=== PATIENT | female | born 1950 | race Caucasian/White ===

== ENCOUNTER 2020-02-12 19:52 | Inpatient (IN) | payer MEDICARE, MEDICAID, SELFPAY ==
--- NOTE | ~2020-02-12 | XR_ITS ---
EXAMINATION: XR chest 1V portable EXAM DATE: 02/12/2020 20:42 INDICATION: Shortness of breath, low oxygen saturation. COVID 19. TECHNIQUE: Portable AP frontal chest x-ray was obtained. Comparison is made to prior examination from 09/06/2019. FINDINGS: Again there is cardiomegaly and pulmonary vascular congestion. There is moderate amount of ill-defined bilateral airspace disease, could be edema, pneumonia and/or acute lung injury. Probable small pleural effusions. No pneumothorax. There are bony degenerative changes. There are cholecystect ewndy clips. IMPRESSION: 1. Cardiomegaly, pulmonary vascular congestion. 2. Moderate amount of bilateral acute airspace disease. Reviewed, dictated and finalized at location A.
[2020-02-12 19:55] VITALS: BP 162/107; PULSE 99; RESP 25; TEMP 36.9; O2SAT 94
--- NOTE | 2020-02-12 20:12 | ECG_ITS ---
Measurements Intervals [place] Rate: 92 P: 108 VA: 194 QRS: 31 QRSD: 106 T: 51 QT: 335 QTc: 415 Interpretive Statements SINUS RHYTHM BORDERLINE ST-T WAVE ABNORMALITY- INF/LAT LEADS BASELINE ARTIFACT- I, II, III, AVR, AVL, AVF, V1, V5-V6 BORDERLINE ECG Electronically Signed On 02-13-2020 7:06:21 CDT by Jeff Arroyo D.O.
--- NOTE | 2020-02-12 20:19 | ED.SOB ---
HPI - SOB/Dyspnea General Chief Complaint: Shortness of Breath/Dyspnea Stated Complaint: low pulse ox Time Seen by Provider: 02/12/20 20:01 History of Present Illness HPI Narrative: The patient presents via EMS from the senior living for increasing shortness of breath. She is known to be COVID positive, and has been on nasal cannula oxygen at the senior living. Her saturations were dropping and her oxygen requirement was increasing, so she was sent here on 15 L nonrebreather. She does not complain of shortness of breath or of any pain or cough.. She has only for something to drink. MD elicited complaint: shortness of breath Related Data Home Medications Medication Instructions Recorded Confirmed Breo Ellipta 1 inh INHALATION DAILY 09/02/19 09/02/19 Eliquis 5 mg PO BID 09/02/19 09/02/19 Levemir U-100 Insulin 60 unit SUBCUT HS 09/02/19 09/02/19 Levemir U-100 Insulin 140 unit SUBCUT DAILY 09/02/19 09/02/19 Novolin R Regular U-100 Insuln 6 units SUBCUT DIRECTED 09/02/19 09/02/19 Victoza 2-Abilio 18 mg SUBCUT DAILY 09/02/19 09/02/19 acetaminophen 650 mg PO Q4H PRN 09/02/19 09/02/19 amlodipine 5 mg PO DAILY 09/02/19 09/02/19 cholecalciferol (vitamin D3) 50,000 unit PO WEEKLY 09/02/19 09/02/19 cyclobenzaprine 5 mg PO TID PRN 09/02/19 09/02/19 dextran 70-hypromellose (PF) 1 drp OPHTHALMIC (EYE) Q4H PRN 09/02/19 09/02/19 dextromethorphan-guaifenesin 10 ml PO Q4H PRN 09/02/19 09/02/19 [Tussin DM Cough and Chest] furosemide [Lasix] 40 mg PO DAILY 09/02/19 09/02/19 gabapentin 300 mg PO TID 09/02/19 09/02/19 isosorbide mononitrate 60 mg PO DAILY 09/02/19 09/02/19 losartan 100 mg PO DAILY 09/02/19 09/02/19 magnesium hydroxide [Milk of 30 ml PO DAILY PRN 09/02/19 09/02/19 Magnesia] meclizine 25 mg PO TID PRN 09/02/19 09/02/19 metoclopramide HCl 10 mg PO AC 09/02/19 09/02/19 metoprolol tartrate 25 mg PO BID 09/02/19 09/02/19 oxybutynin chloride 15 mg PO DAILY 09/02/19 09/02/19 simvastatin 10 mg PO HS 09/02/19 09/02/19 Allergies Allergy/AdvReac Type Severity Reaction Status Date / Time Sulfa (Sulfonamide Allergy Intermediate Rash Verified 09/02/19 09:39 Antibiotics) sulfanilamide Allergy Unknown Unknown Verified 09/02/19 00:37 Review of Systems Review of Systems: ROS unobtainable: Yes unobtainable due to medical condition PMFSH Past Medical History Medical History Acute respiratory failure with hypoxia and hypercarbia Aphasia Atrial fibrillation Cataract Chronic kidney disease, stage 3 Chronic respiratory failure COPD (chronic obstructive pulmonary disease) CVA (cerebral vascular accident) Diabetes mellitus Diastolic heart failure Elevated troponin Gastro-esophageal reflux disease with esophagitis Heart failure Hyperkalemia Hyperlipidemia Hypertension Morbid obesity Sleep apnea Type II diabetes mellitus Surgical History Surgical History H/O: hysterectomy History of tonsillectomy Hx of cholecystectomy Previous section Family History Family History Other Unknown family medical history Social History Social History Smoking status: Never smoker Second hand tobacco smoke exposure: No Alcohol intake: never Substance use: never Gender identity (if verbalized by the patient): Female Spiritual care concerns: No Agree to blood products: Yes Exam Narrative: Exam Narrative: GENERAL: Well-appearing, well-nourished, obese, breathing with her abdominal muscles. HEAD: Normocephalic, atraumatic. EYES: PERRLA and EOMI. ENT: Nares clear, no rhinorrhea or epistaxis. Mucous membranes dry NECK: Supple. CHEST: Clear to auscultation. No respiratory distress. HEART: Regular rate and rhythm. No murmur heard. Normal peripheral pulses. ABDOMEN: Soft, nontender, nondistended, normal active bowel edson
[2020-02-12 20:35] LABS: Basophils Percent Auto 0.3 % (0.2-1.2); Eosinophils Percent Auto 0.5 % (0-4.4); Hemoglobin 12.6 g/dL (12.0-15.0); Immature Granulocyte Absolute 0.03 K/mm3 (0.00-0.031); Immature Granulocyte Percent A 0.3 % (0-0.5); Lymphocytes Absolute Auto 0.64 K/mm3 (0.9-3.2); Lymphocytes Percent Auto 7.5 % (18.3-44.2); Mean Corpuscular HGB Conc 28.6 g/dl (32-36); Mean Corpuscular Hemoglobin 27.7 pg (26-34); Mean Corpuscular Volume 96.7 fl (80-100); Mean Platelet Volume 10.9 fl (7.4-10.4); Monocytes Absolute Auto 1.3 K/mm3 (0.1-0.6); Monocytes Percent Auto 14.8 % (2.6-8.5); Neutrophils Absolute Auto 6.6 K/mm3 (1.3-6.7); Neutrophils Percent Auto 76.6 % (45.5-73.1); Platelet Count Result 210 k/mm3 (150-375); Red Blood Count 4.55 M/mm3 (4.2-5.4); Red Cell Distribution Width 14.6 % (11.5-14.5); White Blood Count 8.6 K/mm3 (4.5-10.0)
[2020-02-12 21:00] VITALS: O2SAT 100
[2020-02-12] MEDS: SODIUM CHLORIDE 0.9% IV 1,000 ML 999 ML IV CONT (21:09)
[2020-02-12] MEDS: FUROSEMIDE INJ 40 MG/4 ML VIAL IV PUSH (21:10)
[2020-02-12 21:16] VITALS: BP 109/69; PULSE 90; RESP 29; TEMP 37.1; O2SAT 100
[2020-02-12 21:23] LABS: Add Urine Microscopic? YES; Appearance Urine Turbid (Clear); Bacteria Urine 4+ /hpf; Bilirubin Urine Negative (Negative); Blood Urine 2+ (Negative); Glucose Urine UA Negative (Negative); Hyaline Casts Urine 15-19 /lpf; Ketones Urine Trace mg/dL (Negative); Leukocyte Esterase Ur 2+ LEU/UL (Negative); Mucus Urine Rare /lpf; Nitrate Urine Negative (Negative); Protein Urine 2+ mg/dL (Negative); RBC Urine 51-75 /hpf (0-2); Specific Grav Ur 1.015 (1.001-1.035); Squamous Epithelial Cell Urine Many /hpf (Few); WBC Clumps Urine Present /HPF; WBC Urine >75 /hpf
[2020-02-12 21:30] LABS: Color Urine Dark Yellow (Yellow)
[2020-02-12] MEDS: KETOROLAC 15 MG/ML VIAL (*BKC) IV PUSH (21:45)
[2020-02-12 22:05] LABS: INR 1.4
[2020-02-12 22:06] LABS: Partial Thromboplastin Time 40.9 SECONDS (22.3-36.8)
[2020-02-12 22:10] VITALS: BP 109/76; PULSE 78; RESP 23; O2SAT 100
[2020-02-12 22:16] LABS: D Dimer 0.39 ug/mL (<0.48)
[2020-02-12 22:23] LABS: Alanine Aminotransferase 21 U/L (4-35); Albumin Level 3.4 g/dL (3.5-5.1); Alkaline Phosphatase 83 U/L (38-126); Aspartate Amino Transferase 29 U/L (14-36); Bilirubin,Total 0.3 mg/dL (0.2-1.3); Blood Urea Nitrogen 51 mg/dL (7-17); CRP 2.5 mg/dL (<1.0); Calcium 10.2 mg/dL (8.4-10.2); Carbon Dioxide 36 mmol/L (22-30); Chloride 100 mmol/L (98-107); Estimated CRCL calculation 36 ml/min; Estimated Glomerular Filt Rate 26; Glucose 146 mg/dL (65-105); Lactate Dehydrogenase 398 U/L (313-618); Potassium 4.5 mmol/L (3.4-5.0); Sodium 141 mmol/L (137-145)
[2020-02-12 22:31] LABS: NT Pro B Type Natriuretic Pept 529 PG/ML (5-100)
[2020-02-12] MEDS: NITROGLYCERIN OINTMENT 1 INCH DOSE TRANSDERM (22:51)
[2020-02-12 22:57] VITALS: BP 117/66; PULSE 78; RESP 22; O2SAT 100
[2020-02-13] VITALS (18 sets, daily range): BP systolic 106–142; BP diastolic 46–98; PULSE 60–100; RESP 16–22; TEMP 36.2–37; O2SAT 90–100; BMI 42.8
[2020-02-13 01:09] LABS: Troponin I 0.167 ng/mL (0.000-0.034)
--- NOTE | 2020-02-13 01:15 | PM.IMHP ---
H&P: HPI History of Present Illness Chief complaint: covid Narrative: This is a 69 year old morbidly obese, Diabetic female well known to me from a previous admission and known to have chronic respiratory failure on 4.5 L of oxygen at all times presented to the ER tonight from [facility] after she was found to have low saturations on pulse oximetry tonight. The patient was placed on a nonrebreather and sent to the hospital for evaluation. She was evaluated in the ER and found to be fluid overloaded on CXR and treated with Lasix IV which has improved her symptoms. The patient has a chronic indwelling sylvester catheter which she cannot tell me exactly why. Her urinalysis tonight was grossly abnormal. On my encounter with her she denies any fever or recent cough. She isn't sure if she has had any increased lower extremity swelling and denies any nausea, vomiting, diarrhea, abdominal pain, chest pain, or other symptoms. The patient has been tested for possible COVID-19 and has been treated empirically with antibiotics for possible bacterial pneumonia. The patient has responded well to the IV lasix and has been weaned down from a nonrebreather to 6L of oxygen via NC. Review of Systems Review of Systems: All systems reviewed & are unremarkable except as noted in HPI and below PMFSH Past Medical History Medical History Acute respiratory failure with hypoxia and hypercarbia Aphasia Atrial fibrillation Cataract Chronic kidney disease, stage 3 Chronic respiratory failure COPD (chronic obstructive pulmonary disease) CVA (cerebral vascular accident) Diabetes mellitus Diastolic heart failure Elevated troponin Gastro-esophageal reflux disease with esophagitis Heart failure Hyperkalemia Hyperlipidemia Hypertension Morbid obesity Sleep apnea Type II diabetes mellitus Surgical History Surgical History H/O: hysterectomy History of tonsillectomy Hx of cholecystectomy Previous section Family History Family History Other Unknown family medical history Social History Social History Smoking status: Never smoker Second hand tobacco smoke exposure: No Alcohol intake: never Substance use: never Gender identity (if verbalized by the patient): Female Spiritual care concerns: No Agree to blood products: No Meds Home Medications and Allergies Home Medications Medication Instructions Recorded Confirmed Type Eliquis 5 mg PO BID 09/02/19 02/13/20 History Levemir U-100 Insulin 28 unit SUBCUT HS 09/02/19 02/13/20 History Levemir U-100 Insulin 140 unit SUBCUT DAILY 09/02/19 02/13/20 History Novolin R Regular U-100 Insuln 6 units SUBCUT AC 09/02/19 02/13/20 History Victoza 2-Abilio 18 mg SUBCUT DAILY 09/02/19 02/13/20 History acetaminophen 650 mg PO Q4H PRN 09/02/19 02/13/20 History amlodipine 5 mg PO DAILY 09/02/19 02/13/20 History cholecalciferol (vitamin D3) 50,000 unit PO WEEKLY 09/02/19 02/13/20 History cyclobenzaprine 5 mg PO TID PRN 09/02/19 02/13/20 History dextran 70-hypromellose (PF) 1 drp OPHTHALMIC (EYE) Q4H PRN 09/02/19 02/13/20 History dextromethorphan-guaifenesin 10 ml PO Q4H PRN 09/02/19 02/13/20 History [Tussin DM Cough and Chest] gabapentin 300 mg PO TID 09/02/19 02/13/20 History isosorbide mononitrate 60 mg PO DAILY 09/02/19 02/13/20 History losartan 100 mg PO DAILY 09/02/19 02/13/20 History magnesium hydroxide [Milk of 30 ml PO DAILY PRN 09/02/19 02/13/20 History Magnesia] meclizine 25 mg PO TID PRN 09/02/19 02/13/20 History metoclopramide HCl 10 mg PO AC 09/02/19 02/13/20 History metoprolol tartrate 25 mg PO BID 09/02/19 02/13/20 History oxybutynin chloride 15 mg PO DAILY 09/02/19 02/13/20 History simvastatin 10 mg PO HS 09/02/19 02/13/20 History ipratropium bromid
--- NOTE | 2020-02-13 01:20 | ADMGEN ---
This patient, Nieves Mendez, was admitted to [facility] Room 333-01. Patient/family oriented to hospital policies and general routines including ID bracelet, bed and alarms, visiting hours, pain management, procedures, bathroom and other care routines, personal items, smoking policy, room service/diet, and visiting hours. Valuables list has been completed. Information on how to activate the Rapid Response Team has been discussed. Patient/Family are encouraged to report perceived risks to care and to ask questions if they do not understand what they are told or what they should do.
--- NOTE | 2020-02-13 01:34 | ECHO_ITS ---
Patient Info Name: Nieves Mendez Age: 69 years : 1950 Gender: Female Ht: 68 in Wt: 288 lbs BSA: 2.57 m2 HR: 62 bpm BP: 109 / 62 mmHg Technical Quality: Fair Exam Date: 02/13/2020 2:28 PM Exam Location: [facility] Patient Status: Inpatient Admit Date: 02/12/2020 Staff Ordering Physician: Zac Elias MD Mechanical Estimator: Saw Pearce RDCS, RT Attending Provider: Brooks Ravi PA-C Referring Physician: JOHNNY [facility] ; Exam Type: CA echo doppler color flow Study Info Indications I50.9 - Heart failure, unspecified Complete two-dimensional, color flow and Doppler transthoracic echocardiogram is performed. Summary 1. Left ventricular chamber dimension is normal. 2. Left ventricular systolic function is normal, estimated at 65-70%. 3. There is severe concentric increased left ventricular wall thickness. 4. The left ventricular diastolic function is grade II diastolic dysfunction. 5. There is mild aortic valve sclerosis. 6. The mitral valve has mildly calcified annulus. 7. There is trace pulmonic regurgitation. 8. There is trivial pericardial effusion. Left Ventricle Tissue doppler is not performed. Left ventricular chamber dimension is normal. Left ventricular systolic function is normal, estimated at 65-70%. There is severe concentric increased left ventricular wall thickness. The left ventricular diastolic function is grade II diastolic dysfunction. Right Ventricle Right ventricular chamber dimension is not well visualized. Right ventricular systolic function is normal. Left Atria Left atrial chamber dimension is normal. Right Atria Right atrial chamber dimension is not well visualized. Aortic Valve The aortic valve is trileaflet. There is mild aortic valve sclerosis. There is no aortic valve stenosis. There is no aortic valve regurgitation. Pulmonic Valve There is trace pulmonic regurgitation. Mitral Valve The mitral valve has mildly calcified annulus. There is no mitral valve stenosis. There is no mitral valve regurgitation. Tricuspid Valve There is no tricuspid valve regurgitation. Pericardium/Pleural There is trivial pericardial effusion. Inferior Vena Cava Normal inferior vena cava with >50% collapse upon inspiration consistent with normal right atrial pressure, 5 mmHg. Aorta The aortic root size at the sinus of Valsalva is normal. Left Ventricular Outflow Tract Name Value Normal LVOT Doppler LVOT Peak Velocity 98 cm/s LVOT Peak Gradient 4 mmHg LVOT Mean Gradient 2 mmHg LVOT VTI 23 cm LVOT VTI/AV VTI Ratio 0.7 Tricuspid Valve Name Value Normal Estimated PAP/RSVP RA Pressure 5 mmHg <=5 TV Diastolic Function RV MPI
[2020-02-13 06:15] LABS: Basophils Absolute Auto 0.1 K/mm3 (0.0-0.1); Basophils Percent Auto 0.6 % (0.2-1.2); Eosinophils Absolute Auto 0.1 K/mm3 (0-0.3); Eosinophils Percent Auto 0.7 % (0-4.4); Hemoglobin 11.9 g/dL (12.0-15.0); Immature Granulocyte Absolute 0.32 K/mm3 (0.00-0.031); Immature Granulocyte Percent A 3.3 % (0-0.5); Lymphocytes Absolute Auto 1.49 K/mm3 (0.9-3.2); Lymphocytes Percent Auto 15.5 % (18.3-44.2); Mean Corpuscular Hemoglobin 27.9 pg (26-34); Mean Platelet Volume 10.8 fl (7.4-10.4); Monocytes Absolute Auto 1.6 K/mm3 (0.1-0.6); Monocytes Percent Auto 16.8 % (2.6-8.5); Neutrophils Percent Auto 63.1 % (45.5-73.1); Platelet Count Result 184 k/mm3 (150-375); Red Blood Count 4.27 M/mm3 (4.2-5.4); Red Cell Distribution Width 14.4 % (11.5-14.5); White Blood Count 9.6 K/mm3 (4.5-10.0)
[2020-02-13 06:53] LABS: Free T4 Free Thyroxine 1.45 ng/mL (0.78-2.19)
[2020-02-13 07:32] LABS: Blood Urea Nitrogen 58 mg/dL (7-17); Calcium 10.1 mg/dL (8.4-10.2); Carbon Dioxide 30 mmol/L (22-30); Chloride 104 mmol/L (98-107); Estimated CRCL calculation 37 ml/min; Estimated Glomerular Filt Rate 28; Glucose 95 mg/dL (65-105); Magnesium 2.3 mg/dL (1.6-2.3); Potassium 5.7 mmol/L (3.4-5.0); Sodium 141 mmol/L (137-145)
[2020-02-13] MEDS: BUDESONIDE/FORMOTEROL (*SP) 160-4.5 MCG 6 GM INH 2 PUFF INHALATION ×2 (08:08→19:53)
[2020-02-13] MEDS: GABAPENTIN 300 MG CAPSULE PO ×3 (09:28→17:35)
[2020-02-13] MEDS: APIXABAN 5 MG TABLET PO ×2 (09:29→17:35)
[2020-02-13] MEDS: ISOSORBIDE MONONITRATE 60 MG TAB.ER.24H PO (09:29)
[2020-02-13] MEDS: ASCORBIC ACID 500 MG TABLET PO (09:30)
[2020-02-13] MEDS: ZINC SULFATE 220 MG CAPSULE PO (09:30)
[2020-02-13] MEDS: AMLODIPINE BESYLATE 5 MG TABLET PO (09:30)
[2020-02-13] MEDS: THERAPEUTIC MULTIVITAMINS/MINERALS TAB (*BKC) 1 TABLET PO (09:30)
[2020-02-13] MEDS: metOLazone 2.5 MG TABLET PO (09:30)
[2020-02-13 09:31] LABS: Troponin I 0.111 ng/mL (0.000-0.034)
[2020-02-13] MEDS: INSULIN DETEMIR 100 UNITS/ML 140 UNITS SUB-Q (09:31)
[2020-02-13] MEDS: METOPROLOL TARTRATE 25 MG TABLET PO ×2 (09:31→17:36)
[2020-02-13] MEDS: FUROSEMIDE INJ 40 MG/4 ML VIAL IV PUSH (09:32)
[2020-02-13] MEDS: METOCLOPRAMIDE HCL 10 MG TABLET PO ×3 (09:33→17:35)
[2020-02-13 10:13] LABS: Glucose Point of Care 98 (65-105)
[2020-02-13] MEDS: INSULIN HUMAN REGULAR (*BKC) 100 UNITS/ML 6 UNITS SUB-Q ×2 (12:47→17:36)
[2020-02-13] MEDS: TOLNAFTATE 1% POWDER 45 GM BTL 1 APPLIC TOPICAL ×2 (12:49→22:22)
[2020-02-13 13:34] LABS: SARS-CoV-2 RNA PCR Positive
[2020-02-13 13:36] LABS: Blood Urea Nitrogen 56 mg/dL (7-17); Calcium 10.1 mg/dL (8.4-10.2); Carbon Dioxide 34 mmol/L (22-30); Chloride 99 mmol/L (98-107); Estimated CRCL calculation 39 ml/min; Estimated Glomerular Filt Rate 30; Glucose 222 mg/dL (65-105); Potassium 5.2 mmol/L (3.4-5.0); Sodium 140 mmol/L (137-145)
[2020-02-13 14:56] LABS: Glucose Point of Care 200 (65-105)
--- NOTE | 2020-02-13 15:13 | P.PNIM_ITS ---
Progress Note: A&P Assessment and Plan (1) Acute on chronic diastolic (congestive) heart failure: Code(s): I50.33 - Acute on chronic diastolic (congestive) heart failure Status: Acute Assessment and Plan: As evident on CXR and respiratory status. * Monitor fluid status. Is and Os, daily weights. * Continue Lasix IV for now * Continue home meds as well (2) Suspected COVID-19 virus infection: Code(s): R68.89 - Other general symptoms and signs Status: Acute Assessment and Plan: COVID testing is positive * Continue supportive care; inhalers, Tylenol, Mucinex * Wean O2 as tolerated (3) Acute respiratory failure: Qualifiers: Respiratory failure complication: hypoxia Qualified Code(s): J96.01 - Acute respiratory failure with hypoxia Code(s): J96.00 - Acute respiratory failure, unspecified whether with hypoxia or hy percapnia Status: Acute Assessment and Plan: Acute on chronic. Likely due to COVID positive vs Acute on chronic diastolic HF vs combination of both. Patient uses 4-4.5 L O2 NC at baseline. Patient has been weaned to 5L O2 HFNC * Continue with treatment for above * Wean O2 to home demands as tolerated * Trend acute phase reactants * Monitor (4) Abnormal urinalysis: Code(s): R82.90 - Unspecified abnormal findings in urine Status: Acute Assessment and Plan: r/o UTI - Urine culture pending * Continue Rocephin for now * Tailor antibiotics to culture/sensitivities (5) Elevated troponin: Code(s): R79.89 - Other specified abnormal findings of blood chemistry Status: Acute Assessment and Plan: ACS unlikely; troponin leak likely secondary to acute heart failure. Trend troponins trended to peak, and his downtrended. * Monitor for chest pain. * Telemetry (6) Chronic kidney disease, stage 3: Code(s): N18.3 - Chronic kidney disease, stage 3 (moderate) Status: Chronic Assessment and Plan: Cr appears to be close to baseline; Cr 1.70 this afternoon * Monitor renal function. * Avoid nephrotoxic agents if possible (7) Diabetes mellitus: Qualifiers: Diabetes mellitus type: type 2 Diabetes mellitus vermin exterminator insulin use: with vermin exterminator use Diabetes mellitus complication status: without complication Qualified Code(s): E11.9 - Type 2 diabetes mellitus without complications; Z79.4 - exterminator helper (current) use of insulin Code(s): E11.9 - Type 2 diabetes mellitus without complications Status: Chronic Assessment and Plan: BGL lowered to 95 this morning; morning insulin dose held. * Resume home regimen * Accuchecks, SSI Coverage, Hypoglycemic protocol, diabetic diet * Monitor (8) Hypertension: Qualifiers: Hypertension type: unspecified Qualified Code(s): I10 - Essential (primary) hypertension Code(s): I10 - Essential (primary) hypertension Status: Chronic Assessment and Plan: stable. BP 110s this afternoon. * Monitor blood pressure. * Continue home medications (9) Hyperlipidemia: Qualifiers: Hyperlipidemia type: unspecified Qualified Code(s): E78.5 - Hyperlipidemia, unspecified Code(s): E78.5 - Hyperlipidemia, unspecified Status: Chronic As
--- NOTE | 2020-02-13 15:13 | PM.IMPN ---
Progress Note: A&P Assessment and Plan (1) Acute on chronic diastolic (congestive) heart failure: Code(s): I50.33 - Acute on chronic diastolic (congestive) heart failure Status: Acute Assessment and Plan: As evident on CXR and respiratory status. Monitor fluid status. Is and Os, daily weights. Continue Lasix IV for now Continue home meds as well (2) Suspected COVID-19 virus infection: Code(s): R68.89 - Other general symptoms and signs Status: Acute Assessment and Plan: COVID testing is positive Continue supportive care; inhalers, Tylenol, Mucinex Wean O2 as tolerated (3) Acute respiratory failure: Qualifiers: Respiratory failure complication: hypoxia Qualified Code(s): J96.01 - Acute respiratory failure with hypoxia Code(s): J96.00 - Acute respiratory failure, unspecified whether with hypoxia or hypercapnia Status: Acute Assessment and Plan: Acute on chronic. Likely due to COVID positive vs Acute on chronic diastolic HF vs combination of both. Patient uses 4-4.5 L O2 NC at baseline. Patient has been weaned to 5L O2 HFNC Continue with treatment for above Wean O2 to home demands as tolerated Trend acute phase reactants Monitor (4) Abnormal urinalysis: Code(s): R82.90 - Unspecified abnormal findings in urine Status: Acute Assessment and Plan: r/o UTI - Urine culture pending Continue Rocephin for now Tailor antibiotics to culture/sensitivities (5) Elevated troponin: Code(s): R79.89 - Other specified abnormal findings of blood chemistry Status: Acute Assessment and Plan: ACS unlikely; troponin leak likely secondary to acute heart failure. Trend troponins trended to peak, and his downtrended. Monitor for chest pain. Telemetry (6) Chronic kidney disease, stage 3: Code(s): N18.3 - Chronic kidney disease, stage 3 (moderate) Status: Chronic Assessment and Plan: Cr appears to be close to baseline; Cr 1.70 this afternoon Monitor renal function. Avoid nephrotoxic agents if possible (7) Diabetes mellitus: Qualifiers: Diabetes mellitus type: type 2 Diabetes mellitus adjunct faculty for medical terminology insulin use: with adjunct faculty for medical terminology use Diabetes mellitus complication status: without complication Qualified Code(s): E11.9 - Type 2 diabetes mellitus without complications; Z79.4 - assisted (current) use of insulin Code(s): E11.9 - Type 2 diabetes mellitus without complications Status: Chronic Assessment and Plan: BGL lowered to 95 this morning; morning insulin dose held. Resume home regimen Accuchecks, SSI Coverage, Hypoglycemic protocol, diabetic diet Monitor (8) Hypertension: Qualifiers: Hypertension type: unspecified Qualified Code(s): I10 - Essential (primary) hypertension Code(s): I10 - Essential (primary) hypertension Status: Chronic Assessment and Plan: stable. BP 110s this afternoon. Monitor blood pressure. Continue home medications (9) Hyperlipidemia: Qualifiers: Hyperlipidemia type: unspecified Qualified Code(s): E78.5 - Hyperlipidemia, unspecified Code(s): E78.5 - Hyperlipidemia, unspecified Status: Chronic Assessment and Plan: Continue simvastatin. (10) COPD (chronic obstructive pulmonary disease): Qualifiers: COPD type: unspecified COPD Qualified Code(s): J44.9 - Chronic obstructive pulmonary disease, unspecified Code(s): J44.9 - Chronic obstructive pulmonary disease, unspecified Status: Chronic Assessment and Plan: Continue bron
[2020-02-13 17:57] LABS: Glucose Point of Care 128 (65-105)
[2020-02-13] MEDS: INSULIN DETEMIR 100 UNITS/ML 28 UNITS SUB-Q (22:05)
[2020-02-13] MEDS: SIMVASTATIN 10 MG TABLET PO (22:22)
[2020-02-13 22:28] LABS: Glucose Point of Care 148 (65-105)
[2020-02-14] VITALS (10 sets, daily range): BP systolic 116–129; BP diastolic 54–91; PULSE 71–105; RESP 18–20; TEMP 36.8–38.8; O2SAT 90–95
[2020-02-14 06:48] LABS: Basophils Percent Auto 0.4 % (0.2-1.2); Eosinophils Absolute Auto 0.2 K/mm3 (0-0.3); Eosinophils Percent Auto 1.9 % (0-4.4); Hematocrit 43.5 % (37.0-47.0); Hemoglobin 12.3 g/dL (12.0-15.0); Immature Granulocyte Absolute 0.03 K/mm3 (0.00-0.031); Immature Granulocyte Percent A 0.3 % (0-0.5); Lymphocytes Absolute Auto 0.69 K/mm3 (0.9-3.2); Lymphocytes Percent Auto 7.6 % (18.3-44.2); Mean Corpuscular HGB Conc 28.3 g/dl (32-36); Mean Corpuscular Hemoglobin 27.4 pg (26-34); Mean Corpuscular Volume 96.9 fl (80-100); Mean Platelet Volume 10.2 fl (7.4-10.4); Monocytes Absolute Auto 1.4 K/mm3 (0.1-0.6); Monocytes Percent Auto 15.1 % (2.6-8.5); Neutrophils Absolute Auto 6.7 K/mm3 (1.3-6.7); Neutrophils Percent Auto 74.7 % (45.5-73.1); Platelet Count Result 200 k/mm3 (150-375); Red Blood Count 4.49 M/mm3 (4.2-5.4); Red Cell Distribution Width 14.2 % (11.5-14.5)
[2020-02-14 07:20] LABS: Alanine Aminotransferase 20 U/L (4-35); Albumin Level 3.7 g/dL (3.5-5.1); Alkaline Phosphatase 86 U/L (38-126); Aspartate Amino Transferase 30 U/L (14-36); Bilirubin,Total 0.4 mg/dL (0.2-1.3); Blood Urea Nitrogen 56 mg/dL (7-17); CRP 2.6 mg/dL (<1.0); Calcium 10.1 mg/dL (8.4-10.2); Carbon Dioxide 36 mmol/L (22-30); Chloride 98 mmol/L (98-107); Creatine Kinase 51 U/L (30-135); Estimated CRCL calculation 34 ml/min; Estimated Glomerular Filt Rate 25; Glucose 34 mg/dL (65-105); Lactate Dehydrogenase 491 U/L (313-618); Magnesium 2.1 mg/dL (1.6-2.3); Potassium 4.2 mmol/L (3.4-5.0); Sodium 139 mmol/L (137-145)
[2020-02-14 08:56] LABS: Glucose Point of Care 95 (65-105)
[2020-02-14] MEDS: BUDESONIDE/FORMOTEROL (*SP) 160-4.5 MCG 6 GM INH 2 PUFF INHALATION (09:26)
[2020-02-14] MEDS: APIXABAN 5 MG TABLET PO ×2 (10:05→18:19)
[2020-02-14] MEDS: GABAPENTIN 300 MG CAPSULE PO ×3 (10:05→18:17)
[2020-02-14] MEDS: ASCORBIC ACID 500 MG TABLET PO (10:06)
[2020-02-14] MEDS: AMLODIPINE BESYLATE 5 MG TABLET PO (10:07)
[2020-02-14] MEDS: ZINC SULFATE 220 MG CAPSULE PO (10:07)
[2020-02-14] MEDS: THERAPEUTIC MULTIVITAMINS/MINERALS TAB (*BKC) 1 TABLET PO (10:07)
[2020-02-14] MEDS: METOCLOPRAMIDE HCL 10 MG TABLET PO ×3 (10:08→18:19)
[2020-02-14] MEDS: metOLazone 2.5 MG TABLET PO (10:08)
[2020-02-14] MEDS: METOPROLOL TARTRATE 25 MG TABLET PO ×2 (10:08→18:18)
[2020-02-14] MEDS: ISOSORBIDE MONONITRATE 60 MG TAB.ER.24H PO (10:09)
[2020-02-14] MEDS: TOLNAFTATE 1% POWDER 45 GM BTL 1 APPLIC TOPICAL (10:10)
[2020-02-14 10:27] LABS: Glucose Point of Care 79 (65-105)
[2020-02-14 10:27] LABS: Glucose Point of Care 147 (65-105)
[2020-02-14 11:30] LABS: Glucose Point of Care 135 (65-105)
--- NOTE | 2020-02-14 11:36 | PM.DS ---
DS: Diagnosis Admitting Diagnosis Admitting Diagnosis: COVID-19 Discharge Diagnosis (1) COVID-19: Code(s): U07.1 - COVID-19 Status: Acute Assessment and Plan: COVID testing is positive Continue supportive care; inhalers, Tylenol, Mucinex Will provide CDC packet for NH in regards to continuing quarantine and at home management Patient at home O2 requirements (2) Acute on chronic diastolic (congestive) heart failure: Code(s): I50.33 - Acute on chronic diastolic (congestive) heart failure Status: Acute Assessment and Plan: As evident on CXR and respiratory status. Patient is down to her home oxygen requirements. Swelling in legs have improved Monitor fluid status. Is and Os, daily weights. Continue home meds (3) Acute respiratory failure: Qualifiers: Respiratory failure complication: hypoxia Qualified Code(s): J96.01 - Acute respiratory failure with hypoxia Code(s): J96.00 - Acute respiratory failure, unspecified whether with hypoxia or hypercapnia Status: Acute Assessment and Plan: Acute on chronic. Likely due to COVID positive vs Acute on chronic diastolic HF vs combination of both. Patient uses 4-4.5 L O2 NC at baseline. Patient has been weaned to 4L O2 NC Discharge today to [place] Monitor (4) UTI (urinary tract infection): Code(s): N39.0 - Urinary tract infection, site not specified Status: Acute Assessment and Plan: Urine culture shows Klebs aerogenes (Enterobacter) susceptible to Rocephin Will switch to Cefdinir today and complete total 7 days of antibiotic course F/u with NH physician (5) Elevated troponin: Code(s): R79.89 - Other specified abnormal findings of blood chemistry Status: Acute Assessment and Plan: ACS unlikely; troponin leak likely secondary to acute heart failure. Trend troponins trended to peak, and has downtrended. Telementry showed sinus rhythm with occasional PVCs, asymptomatic, no other ectopy. Monitor for chest pain. (6) Chronic kidney disease, stage 3: Code(s): N18.3 - Chronic kidney disease, stage 3 (moderate) Status: Chronic Assessment and Plan: Cr appears to be close to baseline; Cr 2.00 Monitor renal function. Will do BMP next week for further monitoring (7) Diabetes mellitus: Qualifiers: Diabetes mellitus complication status: without complication Diabetes mellitus long wall shear operator insulin use: with halfway use Diabetes mellitus type: type 2 Qualified Code(s): E11.9 - Type 2 diabetes mellitus without complications; Z79.4 - retirement (current) use of insulin Code(s): E11.9 - Type 2 diabetes mellitus without complications Status: Chronic Assessment and Plan: BGL into 30s this morning; improved to 140s after glucose. Morning dose switched to 35 u levemir at lunch time to give some supplementation and not induce hyperglycemia as her normal morning dose is 140s units Resume home regimen after discharge, but caution with morning dose Accuchecks, SSI Coverage, Hypoglycemic protocol, diabetic diet during stay (8) Hypertension: Qualifiers: Hypertension type: unspecified Qualified Code(s): I10 - Essential (primary) hypertension Code(s): I10 - Essential (primary) hypertension Status: Chronic Assessment and Plan: stable. BP 120s this afternoon. Monitor blood pressure. Continue home medications (9) Hyperlipidemia: Qualifiers: Hyperlipidemia type: unspecified Qualified Code(s): E78.5 - Hyperlipidemia, unspecified Code(s): E78.5 - Hyperlipidemia, unspecified Status: Chronic
[2020-02-14] MEDS: CEFDINIR 300 MG CAPSULE PO (12:35)
[2020-02-14] MEDS: INSULIN DETEMIR 100 UNITS/ML 35 UNITS SUB-Q (12:36)
[2020-02-14] MEDS: ACETAMINOPHEN 325 MG TABLET 650 MG PO (14:46)
[2020-02-14 16:41] LABS: Glucose Point of Care 110 (65-105)
== END 2020-02-14 18:30 | DRG 177 ==
LOC: ANHED 23:55 → ANH3MEDSUR 02-13 06:59 → ANHED 02-17 14:44 → ANH3MEDSUR 02-17 14:52
PROVIDERS: Emergency Medicine; Physician Assistant; Admitting Provider Hospitalist; Emergency Provider Emergency Medicine; Family Provider Hospitalist; PCP Family Medicine; Visit Provider Family Medicine
DX: U07.1 COVID-19 (principal); I50.33 Acute on chronic diastolic (congestive) heart failure; J96.21 Acute and chronic respiratory failure with hypoxia; N39.0 Urinary tract infection, site not specified; I13.0 Hypertensive heart and chronic kidney disease with heart failure and stage 1 through stage 4 chronic kidney disease, or unspecified chronic kidney disease; Z68.41 Body mass index [BMI] 40.0-44.9, adult; I48.20 Chronic atrial fibrillation, unspecified; E11.22 Type 2 diabetes mellitus with diabetic chronic kidney disease; N18.3 Chronic kidney disease, stage 3 (moderate); B96.89 Other specified bacterial agents as the cause of diseases classified elsewhere; E66.01 Morbid (severe) obesity due to excess calories; G47.30 Sleep apnea, unspecified; E78.5 Hyperlipidemia, unspecified; E87.5 Hyperkalemia; K21.0 Gastro-esophageal reflux disease with esophagitis; J44.9 Chronic obstructive pulmonary disease, unspecified; R79.89 Other specified abnormal findings of blood chemistry; L89.159 Pressure ulcer of sacral region, unspecified stage; L30.4 Erythema intertrigo; Z86.73 Personal history of transient ischemic attack (TIA), and cerebral infarction without residual deficits; Z90.710 Acquired absence of both cervix and uterus; Z90.49 Acquired absence of other specified parts of digestive tract; Z99.81 Dependence on supplemental oxygen
CPT/HCPCS: 36415; 71045; 80048; 80053; 81001; 82550; 82728; 83615; 83735; 83880; 84439; 84484; 85025; 85380; 85610; 85730; 86140; 87040; 87077; 87086; 87088; 87186; 87635; 87804; 93005; 93306; 94640; 96361; 96365; 96367; 96375; 99291; A9270; C9803; J0456; J0696; J1815; J1885; J1940; J7030; U0003